=== PATIENT | male | born 1955 | race Caucasian/White ===

== ENCOUNTER 2023-01-09 17:09 | Emergency (ER) | payer MEDICARE, OTHER, SELFPAY ==
[2023-01-09 17:10] VITALS: BP 136/85; PULSE 76; RESP 16; TEMP 36.4; O2SAT 96
[2023-01-09 17:15] VITALS: BP 136/85; PULSE 98; RESP 14; TEMP 36.3; O2SAT 98
[2023-01-09] MEDS: FLUORESCEIN SOD 1 MG/STRIP EACH EYE (17:29)
[2023-01-09] MEDS: TETRACAINE HCL 0.5% OPHTH SOLN 4 ML BTL 1 DROP EACH EYE (17:29)
[2023-01-09] MEDS: DACRIOSE EYE IRRIGATION 118 ML BOTTLE 10 ML LEFT EYE (17:39)
--- NOTE | 2023-01-09 17:43 | ED.EYEPROB ---
HPI - Eye Problem General Chief complaint: Eye Problems Stated complaint: tree scratched his eye, blurry vision Time Seen by Provider: 01/09/23 17:17 Source: patient and family Mode of arrival: ambulatory Limitations: no limitations History of Present Illness HPI Narrative: this 67-year-old gentleman that presents after he had a tree branch hit his left eye causing some irritation and blurry vision that occurred about 3hours ago there is some tearing patient denies any pain, there is no conjunctival injection no bleeding has good range of motion in all directions with his left eye. chief complaint: eye pain, eye injury and vision change Onset (ago): hour(s) Onset description: sudden Duration: constant Location: left eye Eye Symptoms: redness and blurry vision Related Data Home Medications Medication Instructions Recorded Confirmed pantoprazole 40 mg tablet,delayed 40 mg PO DAILY 01/09/23 01/09/23 release pravastatin 40 mg tablet 40 mg PO DAILY 01/09/23 01/09/23 Allergies Allergy/AdvReac Type Severity Reaction Status Date / Time codeine Allergy Unknown RASH Verified 01/09/23 17:29 Review of Systems Review of Systems: All systems reviewed & are unremarkable except as noted in HPI and below PMFSH Past Medical History Medical History Patient denies medical problems Exam Const: General: healthy appearing Orientation/consciousness: patient oriented x3 Limitations: no limitations HENMT: Head: normal to inspection Other: left eye with tearing and some blurry vision Eyes: Conjunctivae: conjunctivae normal Pupils: Equal, round and reactive pupils present EOM: EOMs intact bilaterally Neck: Neck: normal visual inspection Chest: Chest palpation & inspection: normal inspection of the chest Resp: Effort & Inspection: normal respiratory effort Cardio: Rate: regular rate Rhythm: regular rhythm GI: Auscultation: normal bowel sounds Urinary Catheter: Urinary Catheter: patent and draining Back/Spine/Pelvis: Back: no CVA tenderness Skin: General skin exam: normal color Rashes: no rashes Wounds: no wounds Neuro: General: patient oriented x3 Cranial nerves: Yes Nystagmus not present Speech: normal speech Extrem: General: normal to inspection Psych: Mental Status: mental status grossly normal Affect: normal affect Course Course Emergency Course: fluorescein stain and eye wash were used to irrigate eye and to visualize the cornea which does show a corneal abrasion the middle of the cornea, patient was updated with his tetanus and was given antibiotic eyedrop that was instilled into the left eye. Vital Signs Vital signs: Vital Signs Temperature 36.4 C L 01/09/23 17:10 Pulse Rate 76 01/09/23 17:10 Respiratory Rate 16 01/09/23 17:10 Blood Pressure 136/85 01/09/23 17:10 Pulse Oximetry 96 01/09/23 17:10 Oxygen Delivery Room Air 01/09/23 17:10 Temperature 36.3 C L 01/09/23 17:15 Pulse Rate 98 01/09/23 17:15 Respiratory Rate 14 01/09/23 17:15 Blood Pressure 136/85 01/09/23 17:15 Pulse Oximetry 98 01/09/23 17:15 Oxygen Delivery Room Air 01/09/23 17:15 Procedures FB Removal Eye Foreign Body #1: Foreign Body Removal Date: 01/09/23 Time Out performed: Yes Location: eye (L) Topical anesthetic used: tetracaine Foreign body: other ( No foreign body was visualized in left eye) Evidence of corneal penetration: Yes Technique: irrigation and cotton tip swab Procedure performed under: direct visualization with magnification Post-procedure medication: ophthalmic antibiotic Patient tolerated procedure: well Critical Care Time Critical Care Time Critical Care Time: No Discharge Plan Discharge Clinical Impression: Corneal abrasion Patient Disposition: Home, Self-Care Condition: Stable Instructions: Antibiotic Form, Corneal
[2023-01-09] MEDS: TETANUS,DIPHTHERIA,AC PERTUSSIS ADULT 0.5 ML (ADACEL) IM (17:48)
[2023-01-09] MEDS: NEOMYCIN/POLYMYXIN/HYDROCORT 7.5 ML EYE DROPS (*BKC) 1 DROP LEFT EYE (17:49)
== END 2023-01-09 18:04 | disposition home or self-care (01) ==
LOC: CHSED 18:02
PROVIDERS: Emergency Provider Emergency Medicine; PCP Internal Medicine
DX: S05.02XA Injury of conjunctiva and corneal abrasion without foreign body, left eye, initial encounter (principal); Z23 Encounter for immunization; W45.8XXA Other foreign body or object entering through skin, initial encounter
CPT/HCPCS: 90471; 90715; 99283; A9270